=== PATIENT | male | born 2000 | race Hispanic/Latino ===

== ENCOUNTER 2018-01-08 16:21 | Emergency (ER) | payer BC ==
[~2018-01-08] VITALS: Ht 180.3 cm; Wt 65.8 kg
[2018-01-08 17:42] LABS: BILIRUBIN,URINE NEGATIVE (NEGATIVE); CLARITY,URINE CLEAR (CLEAR); COLOR,URINE YELLOW (YELLOW); KETONES,URINE NEGATIVE (NEGATIVE); LEUKOCYTE ESTERASE ,URINE NEGATIVE (NEGATIVE); NITRITE,URINE NEGATIVE (NEGATIVE); PROTEIN,URINE DIPSTICK NEGATIVE (NEGATIVE); URINE UROBILINOGEN 0.2 mg/dL (0.2 - 1)
[2018-01-08 17:51] LABS: MUCUS,URINE FEW (RARE); WBC,URINE (MAN) 0-5 /HPF (0-5)
--- NOTE | 2018-01-08 18:25 | Diagnostic Imaging Report ---
PROCEDURE:TESTICULAR ULTRASOUND COMPARISON:None. INDICATIONS:Testicular Pain, history of left orchiectomy TECHNIQUE: Hoang-scale and color doppler images of the testicles and scrotal contents were obtained. Duplex imaging with spectral waveform analysis was performed of the testicular arteries and veins. FINDINGS: RIGHT SCROTUM: Testicle: 5.2 x 2.8 x 4.3 cm. Normal echogenicity. Normal vascularity. No focal lesions. Epididymal head: 1.1 x 0.6 x 1.2 cm. 3 cystic, anechoic lesions are noted in the right epididymal head, which measures 0.3 x 0.2 x 0.3 cm, 0.3 x 2.2 x 0.2 cm, and 0.3 x 0.3 x 0.3 cm. Hydrocele: None Varicocele: None LEFT SCROTUM: Left testicle is absent. Normal arterial and venous flow documented in the right testicle. Overlying scrotal skin is unremarkable. No evidence of inguinal hernia. CONCLUSION: 1. 3 cystic, anechoic lesions in the right epididymal head, likely representing simple epididymal cysts versus spermatoceles. 2. Unremarkable right testicle, without focal lesions. Normal arterial and venous flow is documented. 3. Status post left orchiectomy. Amanuel Allen M.D. Dictated by: Amanuel Allen M.D. on 01/08/2018 at 18:30 Electronically approved by: Amanuel Allen M.D. on 01/08/2018 at 18:30
[2018-01-08 20:09] VITALS: BP 143/55
== END 2018-01-08 20:12 | disposition home or self-care (01) ==
LOC: ER 16:21
DX: N50.811 Right testicular pain (principal); N44.2 Benign cyst of testis
CPT/HCPCS: 76870; 81001; 99283